=== PATIENT | female | born 1970 | race Caucasian/White ===

== ENCOUNTER → 2021-04-01 | Outpatient (CLI) | payer OTHER ==
[2021-04-02 07:15] LABS: G. vaginalis (DNA Probe) Negative (NEGATIVE); T. vaginalis (DNA Probe) Negative (NEGATIVE)
[2021-04-02 07:16] LABS: Candida species (DNA Probe) Negative (NEGATIVE)
[2021-04-03 17:10] LABS: CHLAMYDIA TRACHOMATIS, NAA Negative (Negative)
[2021-04-06 10:10] LABS: HSV-1 DNA Negative (Negative); HSV-2 DNA Positive (Negative)
== END | disposition home or self-care (01) ==
LOC: LAB SHORT 15:39 → LAB 15:39
PROVIDERS: Physician Assistant
DX: N76.0 Acute vaginitis (principal)
CPT/HCPCS: 87480; 87491; 87510; 87529; 87591; 87660